=== PATIENT | male | born 1945 | race Asian ===

== ENCOUNTER 2018-09-06 18:46 | Emergency (ER) | payer MEDICARE ==
[~2018-09-06] VITALS: Ht 160 cm; Wt 64.6 kg
[2018-09-06 19:05] VITALS: BP 116/88
--- NOTE | 2018-09-06 20:21 | NUR ---
PT TAKEN TO BED 5
--- NOTE | 2018-09-06 20:49 | NUR ---
Dr. Grimm evaluating patient at bedside.
--- NOTE | 2018-09-06 21:00 | NUR ---
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 PT IN NO RESPIRATORY DISTRESS, PT NO LONGER NAUSEOUS, PT STATES HE "FEELS BETTER". RR EVEN AND UNLABORED, BL BS CLEAR THROUGHOUT. PT SITTING IN BED APPEARS TO BE IN NO ACUTE DISTRESS.
[2018-09-06 21:08] VITALS: BP 142/84
--- NOTE | 2018-09-06 21:08 | NUR ---
Patient discharged with v/s stable. Written and verbal after care instructions given and explained. Patient verbalized understanding. Ambulatory with steady gait. All questions addressed prior to discharge. Advised to follow up with PMD.
== END 2018-09-06 21:08 | disposition home or self-care (01) ==
LOC: MED 18:46
DX: T58.8X1A Toxic effect of carbon monoxide from other source, accidental (unintentional), initial encounter (principal); R11.10 Vomiting, unspecified; I10 Essential (primary) hypertension; Y92.89 Other specified places as the place of occurrence of the external cause
CPT/HCPCS: 99281

== ENCOUNTER 2021-05-26 23:15 | Emergency (ER) | payer MEDICARE ==
--- NOTE | 2021-05-26 23:25 | NUR ---
PATIENT CALLED TRIAGE, NO RESPONSE
--- NOTE | 2021-05-26 23:25 | NUR ---
PATIENT LEFT WITHOUT BEING SEEN BY . NO FURTHER CARE PROVIDED FOR PATIENT.
--- NOTE | 2021-05-26 23:35 | NUR ---
SECOND CALL, NO RESPONSE
--- NOTE | 2021-05-26 23:45 | NUR ---
CALL FOR THIRDTIME , NO RESPONSE
== END 2021-05-26 23:25 | disposition left against medical advice (07) ==
LOC: MED 23:15
DX: R07.9 Chest pain, unspecified (principal); Z53.21 Procedure and treatment not carried out due to patient leaving prior to being seen by health care provider